=== PATIENT | female | born 1960 | race Caucasian/White ===

== ENCOUNTER 2018-02-01 13:58 | Observation (INO) ==
[2018-02-01] MEDS ORDERED: ONDANSETRON 4 MG/2 ML VIAL IV ONE (14:18)
--- NOTE | 2018-02-01 14:26 | Emergency Department Note ---
Abdominal Pain HPI - General Chief Complaint: Constipation Stated Complaint: constipation, n/v Time Seen by Provider: 02/01/18 14:05 Source: patient Mode of arrival: ambulatory Limitations: no limitations - History of Present Illness HPI Narrative: 58-year-old female presents with constipation 5 days. She also complains of significant lower abdominal cramping and vomiting that started today. She started having the cramping last night and it comes in waves. She states she has vomited once today. She is in significant pain. She states her only pain medication that she takes his hydrocodone in the last hydrocodone she took was 2 evenings ago. She has not taken anything to help with her bowels. She has not had any issues with obstruction in the past but has had constipation issues. She also had a kidney transplant in 2004. She denies any other surgeries. She also has multiple stents in her heart and takes Plavix. She denies any chest pain or shortness of breath. She denies any urinary symptoms or vaginal discharge. She states most of her pain is lower abdomen. This comes in waves. She is writhing in the bed. She is type I diabetic. She also does peritoneal dialysis each evening at home - Related Data Home Medications Medication Instructions Recorded Confirmed Aspirin [Adult Low Dose Aspirin EC] 81 mg PO DAILY 05/03/15 02/01/18 Clopidogrel [Plavix] 75 mg PO DAILY 05/03/15 02/01/18 Escitalopram [Lexapro] 20 mg PO DAILY 05/03/15 02/01/18 Nitroglycerin [Nitrostat] 0.4 mg SL Q5M PRN 05/03/15 02/01/18 Pravastatin [Pravachol] 40 mg PO HS 05/03/15 02/01/18 Alendronate Sodium [Fosamax] 70 mg PO WEEKLY 02/01/18 02/01/18 Calcitriol [Rocaltrol] 0.5 mcg PO DAILY 02/01/18 02/01/18 Cephalexin [Keflex] 250 mg PO DAILY 02/01/18 02/01/18 Felodipine [Felodipine ER] 5 mg PO DAILY 02/01/18 02/01/18 Folic Acid/Vit Bcomp,C [Dialyvite 1 each PO DAILY 02/01/18 02/01/18 Tablet] Furosemide [Lasix] 80 mg PO BID 02/01/18 02/01/18 Insulin Aspart [Novolog] 0 unit SQ DAILY 02/01/18 02/01/18 Iron Ps Cmplx/Vit B12/FA 1 each PO DAILY 02/01/18 02/01/18 [Poly-Iron 150 Forte Capsule] Losartan Potassium [Cozaar] 100 mg PO DAILY 02/01/18 02/01/18 Magnesium Oxide/Mag Aa Chelate 400 mg PO DAILY 02/01/18 02/01/18 [Magnesium 300 mg Capsule] traZODone HCL [Trazodone HCl] 100 mg PO DAILY 02/01/18 02/01/18 Previous Rx's Medication Instructions Recorded HYDROmorphone [Dilaudid] 4 mg PO Q4-6HP PRN #20 tablet 04/20/16 Allergies Allergy/AdvReac Type Severity Reaction Status Date / Time droperidol Allergy Severe ANAPHYLAXIS, Verified 05/03/15 10:58 DYSPNEA Sulfa (Sulfonamide Allergy Intermediate RASH Verified 05/03/15 10:58 Antibiotics) adhesive tape Allergy Verified 09/21/15 14:47 BAND AIDS AdvReac Intermediate REMOVES Uncoded 01/04/15 03:39 SKIN Review of Systems All systems ED: reviewed and negative except as stated. 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 Absent: conjunctival injection Neck: Present: normal inspection, full ROM Chest: Present: normal inspection, symmetric chest wall rise Respiratory: Present: normal lung sounds bilaterally Cardiovascular: Present: regular rate, normal heart sounds Abdominal: Present: soft, tenderness, guarding, diminished bowel sounds. Absent : distention, rebound, rigidity, psoas sign, obturator sign, heel tap sign Abdominal tenderness: Present: RUQ, RLQ, LUQ, LLQ, epigastrium, suprapubic ( severe) Rectal: Present: heme (-) stool, black stool (takes iron). Absent: bloody stool , fecal impaction, hemorrhoids Extremities: Present: normal inspection, full ROM Neurological: Present: alert, oriented X3 Psychiatric: Present: anxious Skin: Present: warm, dry, intact Course Course Narrative: Patient given a fleets and a soapsuds enema without any relief. I discussed this with Dr. Mcmahon and he would like to treat her with Relistor and fluids. I also talked with Dr. Reid and he wants peritoneal fluid taken and if she needs any antibiotics he can order it peritoneal through her dialysis catheter. Patient has been comfortable throughout her stay. Vital Signs Temperature 98.3 F 02/01/18 13:59 Pulse Rate 78 02/01/18 13:59 Respiratory Rate 20 02/01/18 13:59 Blood Pressure 159/59 02/01/18 13:59 Pulse Oximetry (%) 100 02/01/18 13:59 Temperature 98.3 F 02/01/18 13:59 Pulse Rate 71 02/01/18 18:45 Respiratory Rate 16 02/01/18 18:45 Blood Pressure 140/77 02/01/18 18:45 Pulse Oximetry (%) 98 02/01/18 18:45 Abdominal Pain - Lab Data Lab results reviewed: Yes I reviewed the patient's lab results. Result diagrams: 02/01/18 14:37 02/01/18 14:36 Lab Results 02/01/18 02/01/18 02/01/18 Range/Units 14:36 14:36 14:37 WBC 15.0 H (4.5-11.0) K/mcL RBC 3.47 L (4.00-5.20) M/mcL Hgb 11.4 L (12.0-15.0) g/dL Hct 33.4 L (36.0-48.0) % POC Hct 33.0 L (36.0-48.0) % MCV 96.4 (80.0-100.0) fL MCH 33.0 (26.0-34.0) pg MCHC 34.2 (31.0-36.0) g/dL RDW 12.3 (11.5-14.5) % Plt Count 291 (140-440) K/mcL MPV 8.3 (7.4-10.4) fL Gran % 79.9 H (38.0-78.0) % Lymph % (Auto) 12.4 L (15.5-49.0) % [place] % (Auto) 6.8 (1.0-12.0) % Eos % (Auto) 0.6 (0.0-7.0) % Baso % (Auto) 0.3 (0.0-2.0) % Gran # 12.0 H (1.8-8.0) K/mcL Lymph # (Auto) 1.9 (1.5-4.8) K/mcL [place] # (Auto) 1.0 H (0.1-0.9) K/mcL Eos # (Auto) 0.1 (0.0-0.7) K/mcL Baso # (Auto) 0 (0.0-0.3) K/mcL VBG Lactic Acid (0.5-2.2) mmol/L POC Sodium 132 L (133-145) mmol/L Sodium 132 L (133-145) mmol/L POC Potassium 4.2 (3.3-5.1) mmol/L Potassium 4.2 (3.3-5.1) mmol/L POC Chloride 96 (96-108) mmol/L Chloride 93 L (96-108) mmol/L Carbon Dioxide 23 (22-30) mmol/L POC Total CO2 23 (22-30) mmol/L Anion Gap 16.0 (8-16) POC BUN 46 H (6-20) mg/dl BUN 56 H (6-20) mg/dl Creatinine 3.3 H (0.6-1.1) mg/dl POC Creatinine 3.8 H (0.6-1.1) mg/dl GFR Calculation 15 Glucose 184 H (70-105) mg/dL POC Glucose 184 H (70-105) mg/dL Calcium 10.0 (8.6-10.4) mg/dl POC WB Ioniz Calcium 1.09 L (1.16-1.32) mmol/L Total Bilirubin 0.5 (0.0-1.0) mg/dL AST 35 (0-37) U/l ALT 18 (0-40) U/l Alkaline Phosphatase 106 (39-117) U/L Total Protein 7.2 (5.9-8.4) gm/dL Albumin 3.8 (3.2-5.2) gm/dL Globulin 3.4 (2.2-3.7) gm/dL Albumin/Globulin Ratio 1.1 (1.0-2.3) Beta-Hydroxybutyrate 0.78 H (< 0.27) mmol/L Periton Neutrophils Periton Lymphocytes Peritoneal Monocytes Peritoneal Eosinophils Peritoneal Basophils Periton Mesothelial Periton Macrophages Peritoneal Plasma Cell Peritoneal Other Cells Peritoneal Diff Commnt 02/01/18 02/01/18 Range/Units 16:08 18:21 WBC (4.5-11.0) K/mcL RBC (4.00-5.20) M/mcL Hgb (12.0-15.0) g/dL Hct (36.0-48.0) % POC Hct (36.0-48.0) % MCV (80.0-100.0) fL MCH (26.0-34.0) pg MCHC (31.0-36.0) g/dL RDW (11.5-14.5) % Plt Count (140-440) K/mcL MPV (7.4-10.4) fL Gran % (38.0-78.0) % Lymph % (Auto) (15.5-49.0) % [place] % (Auto) (1.0-12.0) % Eos % (Auto) (0.0-7.0) % Baso % (Auto) (0.0-2.0) % Gran # (1.8-8.0) K/mcL Lymph # (Auto) (1.5-4.8) K/mcL [place] # (Auto) (0.1-0.9) K/mcL Eos # (Auto) (0.0-0.7) K/mcL Baso # (Auto) (0.0-0.3) K/mcL VBG Lactic Acid 1.4 (0.5-2.2) mmol/L POC Sodium (133-145) mmol/L Sodium (133-145) mmol/L POC Potassium (3.3-5.1) mmol/L Potassium (3.3-5.1) mmol/L POC Chloride (96-108) mmol/L Chloride (96-108) mmol/L Carbon Dioxide (22-30) mmol/L POC Total CO2 (22-30) mmol/L Anion Gap (8-16) POC BUN (6-20) mg/dl BUN (6-20) mg/dl Creatinine (0.6-1.1) mg/dl POC Creatinine (0.6-1.1) mg/dl GFR Calculation Glucose (70-105) mg/dL POC Glucose (70-105) mg/dL Calcium (8.6-10.4) mg/dl POC WB Ioniz Calcium (1.16-1.32) mmol/L Total Bilirubin (0.0-1.0) mg/dL AST (0-37) U/l ALT (0-40) U/l Alkaline Phosphatase (39-117) U/L Total Protein (5.9-8.4) gm/dL Albumin (3.2-5.2) gm/dL Globulin (2.2-3.7) gm/dL Albumin/Globulin Ratio (1.0-2.3) Beta-Hydroxybutyrate (< 0.27) mmol/L Periton Neutrophils Not Reportable Periton Lymphocytes Not Reportable Peritoneal Monocytes Not Reportable Peritoneal Eosinophils Not Reportable Peritoneal Basophils Not Reportable Periton Mesothelial Not Reportable Periton Macrophages Not Reportable Peritoneal Plasma Cell Not Reportable Peritoneal Other Cells Not Reportable Peritoneal Diff Commnt Not Reportable - Radiology Data Radiology results reviewed: Yes I reviewed the patient's radiology results. Severe fecal impaction Disposition Pt seen by DRAWING TENDER/PA only: Yes Clinical Impression: Constipation Disposition: Xfer As Inpt ([facility]) Condition: Fair
[2018-02-01 15:14] LABS: Basophils # (Auto) 0 K/mcL (0.0-0.3); Basophils % (Auto) 0.3 % (0.0-2.0); Eosinophils # (Auto) 0.1 K/mcL (0.0-0.7); Eosinophils % (Auto) 0.6 % (0.0-7.0); Granulocytes % (Auto) 79.9 % (38.0-78.0); Lymphocytes # (Auto) 1.9 K/mcL (1.5-4.8); Lymphocytes % (Auto) 12.4 % (15.5-49.0); Mean Cell Volume 96.4 fL (80.0-100.0); Mean Corpuscular HGB Conc 34.2 g/dL (31.0-36.0); Monocytes % (Auto) 6.8 % (1.0-12.0); Platelet Count 291 K/mcL (140-440); RBC 3.47 M/mcL (4.00-5.20); Red Cell Distribution Width 12.3 % (11.5-14.5)
[2018-02-01 15:30] LABS: ALT/SGPT 18 U/l (0-40); Albumin 3.8 gm/dL (3.2-5.2); Albumin/Globulin Ratio 1.1 (1.0-2.3); Alkaline Phosphatase 106 U/L (39-117); Blood Urea Nitrogen 56 mg/dl (6-20)
--- NOTE | 2018-02-01 15:42 | XRay Report ---
CLINICAL INFORMATION: Constipation. Nausea and vomiting. TECHNIQUE: Supine and upright AP abdomen COMPARISON: CT scan dated 11/03/2016 FINDINGS: Previous lumbar fusion from L4 through S1. There are multiple surgical clips in the pelvis. There is a peritoneal dialysis catheter in place. Large amount of fecal material consistent with severe constipation or impaction. No dilated gas-filled small bowel. No evidence for mechanical small bowel obstruction. No pneumoperitoneum. No pneumatosis. No biliary or portal venous gas. IMPRESSION: 1. Severe constipation or impaction. 2. No mechanical small bowel obstruction. No focal abnormality. Interpreted and Authenticated by: Lionel Ennis 02/01/18
[2018-02-01] MEDS ORDERED: MINERAL OIL 1 DOSE ENEMA PR ONE (15:57)
[2018-02-01] MEDS ORDERED: FLEETS ADULT ENEMA PR ONE (16:10)
[2018-02-01] MEDS ORDERED: LACTULOSE 20 GM/30 ML ORAL.SOL PO ONE ×2 (17:21→17:22)
[2018-02-01] MEDS ORDERED: METHYLNALTREXONE BROMIDE 12 MG/0.6 ML SYRINGE SC ONE (17:38)
[2018-02-01] MEDS ORDERED: 0.9 % SODIUM CHLORIDE 1,000 ML IV SCH (18:15)
[2018-02-01] MEDS ORDERED: ONDANSETRON 4 MG/2 ML VIAL IV PRN (18:17)
[2018-02-01] MEDS ORDERED: DEXTROSE 50% 50 ML VIAL IV PRN (18:24)
[2018-02-01 20:05] LABS: Appearance,Urine CLEAR; Bacteria,Urine 0 /hpf (0); Bilirubin,Urine NEG (NEG); Color,Urine STRAW; Glucose,Urine (UA) NEGATIVE (NEG); Leukocyte Esterase,Urine NEG /uL (NEG); Protein,Urine NEG (NEG); Specific Gravity,Urine 1.009 (1.000-1.035); Urine Blood NEG mg/dL (<0.03); Urine RBC 1 /hpf (0-1); Urine Squamous Epithelial Cell 0 /hpf (0-4); Urine WBC 1 /hpf (0-4); Urobilinogen,Urine NEG (NEG)
[2018-02-01] MEDS ORDERED: POLYETHYLENE GLYCOL 3350 17 GM PACKET PO ONE (20:37)
[2018-02-01 20:44] LABS: Nucleated Cel,Peritoneal Fluid 1 /cumm; RBC,Peritoneal Fluid < 50000 /cumm
--- NOTE | 2018-02-01 21:04 | General Surg History&Physical ---
History of Present Illness Patient information: Note initiated : 02/01/18 at 9:02 pm Service Date, if different from initiated Date: [] Patient: Brandy Mcmillan a 58 y/o F admitted on 02/01/18 for constipation, n/v. Chief Complaint: [] HPI: Ms. Mcmillan is a 58 year old F long-term history of constipation. She states that she usually has a bowel movement every 4 days but has been regular and has not had discomfort. Over the past 5 days she has had worsening pain and distention with nausea and vomiting. She presents to the emergency room with severe constipation involving her entire colon with a palpable hard fecal masses ; and mild leukocytosis. She is admitted for treatment to evacuate her colon. She did not respond to enemas in the emergency room. Review of Systems - Constitutional fatigue, headache(s), malaise, weakness - EENT Nose, mouth and throat: dizziness, headache(s), vertigo - Cardiovascular syncope (history of episodic syncope and near-syncope with no obvious source) - Respiratory no cough, no dyspnea on exertion, no wheezing, no pain on inspirtation - Gastrointestinal abdominal pain, bloating, constipation, cramping, nausea, vomiting - Musculoskeletal back pain, myalgias, stiffness - Integumentary no changing lesions, no new lesions, no non-healing lesions, no pruritus, no rash - Neurological dizziness, numbness, tremor(s), weakness - Psychiatric anxiety, depression - Endocrine fatigue - Hematologic/Lymphatic no easy bleeding, no easy bruising, no lymphadenopathy Past History Past medical history: Coronary artery disease status post stents 7 with last 2 stents placed 1 month ago Carotid artery stenosis,, bilateral; status post left carotid endarterectomy 2 months ago End-stage renal disease status post kidney transplant with rejection on peritoneal dialysis Diabetes mellitus insulin-dependent with insulin pump Anemia renal and chronic disease Hypertension Past surgical history: O TIF left ankle Kidney transplant Left carotid endarterectomy Lumbar back surgery 3 Past family history: Father age 87 due to complications of thyroid cancer Mother alive age 84 with coronary artery disease hypertension and peripheral vascular disease 2 older siblings in good health Past social history: Denies tobacco Denies alcohol use Denies drug use Medications and Allergies Home Medications Medication Instructions Recorded Confirmed Type Aspirin [Adult Low Dose Aspirin EC] 81 mg PO DAILY 05/03/15 02/01/18 History Clopidogrel [Plavix] 75 mg PO DAILY 05/03/15 02/01/18 History Escitalopram [Lexapro] 20 mg PO DAILY 05/03/15 02/01/18 History Nitroglycerin [Nitrostat] 0.4 mg SL Q5M PRN 05/03/15 02/01/18 History Pravastatin [Pravachol] 40 mg PO HS 05/03/15 02/01/18 History HYDROmorphone [Dilaudid] 4 mg PO Q4-6HP PRN #20 tablet 04/20/16 02/01/18 Rx Alendronate Sodium [Fosamax] 70 mg PO WEEKLY 02/01/18 02/01/18 History Calcitriol [Rocaltrol] 0.5 mcg PO DAILY 02/01/18 02/01/18 History Cephalexin [Keflex] 250 mg PO DAILY 02/01/18 02/01/18 History Felodipine [Felodipine ER] 5 mg PO DAILY 02/01/18 02/01/18 History Folic Acid/Vit Bcomp,C [Dialyvite 1 each PO DAILY 02/01/18 02/01/18 History Tablet] Furosemide [Lasix] 80 mg PO BID 02/01/18 02/01/18 History Insulin Aspart [Novolog] 0 unit SQ DAILY 02/01/18 02/01/18 History Iron Ps Cmplx/Vit B12/FA 1 each PO DAILY 02/01/18 02/01/18 History [Poly-Iron 150 Forte Capsule] Losartan Potassium [Cozaar] 100 mg PO DAILY 02/01/18 02/01/18 History Magnesium Oxide/Mag Aa Chelate 400 mg PO DAILY 02/01/18 02/01/18 History [Magnesium 300 mg Capsule] traZODone HCL [Trazodone HCl] 100 mg PO DAILY 02/01/18 02/01/18 History Oxymetazoline [Afrin] 2 spray INTRANASAL DAILY 02/02/18 02/02/18 History Allergies Allergy/AdvReac Type Severity Reaction Status Date / Time droperidol Allergy Severe ANAPHYLAXIS, Verified 05/03/15 10:58 DYSPNEA Sulfa (Sulfonamide Allergy Intermediate RASH Verified 05/03/15 10:58 Antibiotics) adhesive tape Allergy Verified 09/21/15 14:47 BAND AIDS AdvReac Intermediate REMOVES Uncoded 01/04/15 03:39 SKIN Exam Temp Pulse Resp BP Pulse Ox 99.3 F H 78 12 138/64 97 02/01/18 18:53 02/01/18 18:53 02/01/18 18:53 02/01/18 18:53 02/01/18 18:53 - General physical appearance well developed, well nourished, no distress, moderate distress, moderate pain - Eyes PERRL, normal ocular movement - ENT normal pinna, normal nares, normal mucosa, no hearing loss, no congestion - Head Head exam IM: Present: atraumatic, normal inspection, normocephalic - Neck no masses, trachea midline, no lymphadectomy, no venous distension, other ( bilateral soft carotid bruits; healing left carotid endarterectomy scar) - Cardiovascular Cardiovascular exam IM: Present: normal rate and rhythm, RRR, +S1, +S2. Absent : JVD, tachycardia Type of murmur IM: Present: systolic Intensity IM: 2/6 - Respiratory normal expansion, normal respiratory effort, clear to percussion, clear to auscultation - Abdomen Abdomen: Present: tender, bowel sounds, distended ( moderate distention with diffuse tenderness and palpable hard stool in colon; active bowel sounds) Hernia: Present: none - Genitourinary Present: normal external genitalia - Integumentary Present: no rash, no growths, no abnormal pigmentation - Neurologic Present: normal coordination, normal sensation - Musculoskeletal Present: normal gait, normal posture - Psychiatric Present: oriented to time, oriented to person, oriented to place, speech is normal, memory intact Assessment and Plan (1) Constipation due to opioid therapy Relistor 12 mg subcutaneous daily Reglan 10 mg IV every 6 hours MiraLAX 17 g in 8 ounces liquid 4 times daily Follow-up abdominal x-rays in 24 hours May need to use milk of molasses enemas to evacuate the rectum Status: Acute (2) Coronary artery disease Continue home medication Status: Acute Qualifiers: Coronary Disease-Associated Artery/Lesion type: [place] artery [place] vs. 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
[2018-02-01] MEDS: FUROSEMIDE 80 MG TABLET PO SCH (21:41)
[2018-02-01] MEDS: traZODone HCL 100 MG TABLET PO SCH (21:41)
[2018-02-01] MEDS: METOCLOPRAMIDE 10 MG/2 ML VIAL IV SCH (23:11)
[2018-02-02] MEDS: INSULIN LISPRO 1 UNIT/0.01 ML UNIT SQ SCH ×5 (00:19→23:57)
[2018-02-02] MEDS: METOCLOPRAMIDE 10 MG/2 ML VIAL IV SCH ×4 (05:27→23:52)
[2018-02-02] MEDS ORDERED: CLOPIDOGREL 75 MG TABLET PO SCH (09:00)
[2018-02-02] MEDS: LOSARTAN 50 MG TABLET PO SCH ×3 (11:12→21:29)
[2018-02-02] MEDS: FELODIPINE XR 5 MG TABLET PO SCH (11:14)
[2018-02-02] MEDS: ESCITALOPRAM 20 MG TABLET PO SCH (11:14)
[2018-02-02] MEDS: FUROSEMIDE 80 MG TABLET PO SCH ×2 (11:14→19:51)
[2018-02-02] MEDS: METHYLNALTREXONE BROMIDE 12 MG/0.6 ML SYRINGE SQ SCH (11:15)
--- NOTE | 2018-02-02 14:13 | General Surgery Progress Note ---
Subjective Patient reports: still having pain, tolerating liquids well, flatus, bowel movement, afebrile Narrative: Note initiated : 02/02/18 at 2:10 pm Service Date, if different from initiated Date: [] Patient: Brandy Mcmillan 58 y/o F admitted on 02/01/18 for constipation, n/v. Chief Complaint: [patient is still having crampy abdominal pain. She had a small bowel movement and passed a small amount of gas. She had nausea with the Relistor but did not have any vomiting. She still has significant abdominal distention.cultures on her peritoneal dialysis fluid have been negative.. She does not have any bacteria and very rare white blood cell on Gram stain.] Objective Temp Pulse Resp BP Pulse Ox 98.5 F 85 12 114/63 98 02/02/18 12:00 02/02/18 12:00 02/02/18 12:00 02/02/18 12:00 02/02/18 12:00 - Additional Data Intake & Output - Last 24 hours: Intake & Output 01/31/18 02/01/18 02/02/18 02/03/18 05:59 05:59 05:59 05:59 Intake Total 680 / 680 800 / 800 Output Total 900 / 900 1000 / 1000 Balance -220 / -220 -200 / -200 Weight 163 lb - General physical appearance well developed, well nourished, moderate distress, moderate pain - Eyes PERRL, normal ocular movement - ENT normal pinna, normal nares, normal mucosa, no hearing loss, no congestion - Neck no masses, no bruits, trachea midline, no lymphadectomy, no venous distension - Respiratory normal expansion, normal respiratory effort, clear to percussion, clear to auscultation - Cardiovascular Cardiovascular exam: Present: normal rate and rhythm, RRR, +S1, +S2. Absent: JVD, tachycardia - Abdomen tender (moderate diffuse tenderness with fullness over course of colon; active bowel sounds), bowel sounds (present), surgical scars (none), masses (none) - Integumentary no rash, no growths, no abnormal pigmentation - Neurologic normal coordination, normal sensation - Musculoskeletal normal gait, normal posture - Psychiatric oriented to time, oriented to person, oriented to place, speech is normal, memory intact - Labs 02/01/18 14:37 02/01/18 14:36 Diabetes panel 02/01/18 Range/Units 14:36 Sodium 132 L (133-145) mmol/L Potassium 4.2 (3.3-5.1) mmol/L Chloride 93 L (96-108) mmol/L Carbon Dioxide 23 (22-30) mmol/L BUN 56 H (6-20) mg/dl Creatinine 3.3 H (0.6-1.1) mg/dl Glucose 184 H (70-105) mg/dL Calcium 10.0 (8.6-10.4) mg/dl AST 35 (0-37) U/l ALT 18 (0-40) U/l Alkaline Phosphatase 106 (39-117) U/L Total Protein 7.2 (5.9-8.4) gm/dL Albumin 3.8 (3.2-5.2) gm/dL Calcium panel 02/01/18 Range/Units 14:36 Calcium 10.0 (8.6-10.4) mg/dl Albumin 3.8 (3.2-5.2) gm/dL Pituitary panel 02/01/18 Range/Units 14:36 Sodium 132 L (133-145) mmol/L Potassium 4.2 (3.3-5.1) mmol/L Chloride 93 L (96-108) mmol/L Carbon Dioxide 23 (22-30) mmol/L BUN 56 H (6-20) mg/dl Creatinine 3.3 H (0.6-1.1) mg/dl Glucose 184 H (70-105) mg/dL Calcium 10.0 (8.6-10.4) mg/dl Adrenal panel 02/01/18 Range/Units 14:36 Sodium 132 L (133-145) mmol/L Potassium 4.2 (3.3-5.1) mmol/L Chloride 93 L (96-108) mmol/L Carbon Dioxide 23 (22-30) mmol/L BUN 56 H (6-20) mg/dl Creatinine 3.3 H (0.6-1.1) mg/dl Glucose 184 H (70-105) mg/dL Calcium 10.0 (8.6-10.4) mg/dl Total Bilirubin 0.5 (0.0-1.0) mg/dL AST 35 (0-37) U/l ALT 18 (0-40) U/l Alkaline Phosphatase 106 (39-117) U/L Total Protein 7.2 (5.9-8.4) gm/dL Albumin 3.8 (3.2-5.2) gm/dL Assessment and Plan (1) Constipation due to opioid therapy Status: Acute Assessment and plan: Scheduled milk and molasses enema today and tomorrow Recheck abdominal x-rays in the morning Continue Reglan and Relistor Current Visit: Yes (2) Coronary artery disease Status: Acute Current Visit: Yes (3) Hypertension Status: Acute Current Visit: No (4) Chronic renal failure Status: Acute Current Visit: No (5) Diabetes mellitus Status: Acute Current Visit: Yes - Time Spent With Patient Total time spent is greater than 50% in coordination of care (as documented) at patient's floor/unit and/or counseling patient:
[2018-02-02 15:03] LABS: Neutrophils,Peritoneal Fluid 30 %; Nucleated Cel,Peritoneal Fluid 115 /cumm; RBC,Peritoneal Fluid < 50000 /cumm
[2018-02-02] MEDS ORDERED: METHYLNALTREXONE BROMIDE 12 MG/0.6 ML SYRINGE SC SCH (18:00)
[2018-02-02] MEDS: CLOPIDOGREL 75 MG TABLET PO SCH (21:29)
[2018-02-02] MEDS: traZODone HCL 100 MG TABLET PO SCH (21:29)
[2018-02-03 05:35] LABS: Basophils # (Auto) 0 K/mcL (0.0-0.3); Basophils % (Auto) 0.2 % (0.0-2.0); Eosinophils # (Auto) 0.4 K/mcL (0.0-0.7); Eosinophils % (Auto) 4.1 % (0.0-7.0); Granulocytes % (Auto) 71.6 % (38.0-78.0); Lymphocytes # (Auto) 1.2 K/mcL (1.5-4.8); Lymphocytes % (Auto) 12.8 % (15.5-49.0); Mean Cell Volume 97.4 fL (80.0-100.0); Mean Corpuscular HGB Conc 33.8 g/dL (31.0-36.0); Mean Corpuscular Hemoglobin 32.9 pg (26.0-34.0); Monocytes % (Auto) 11.3 % (1.0-12.0); Platelet Count 214 K/mcL (140-440); RBC 2.73 M/mcL (4.00-5.20); Red Cell Distribution Width 12.6 % (11.5-14.5)
[2018-02-03] MEDS: METOCLOPRAMIDE 10 MG/2 ML VIAL IV SCH ×4 (05:57→17:41)
[2018-02-03] MEDS: INSULIN LISPRO 1 UNIT/0.01 ML UNIT SQ SCH ×3 (06:08→17:55)
[2018-02-03 06:43] LABS: ALT/SGPT 12 U/l (0-40); Albumin 2.9 gm/dL (3.2-5.2); Alkaline Phosphatase 76 U/L (39-117); Bilirubin,Direct < 0.2 mg/dL (0.0-0.3); Blood Urea Nitrogen 36 mg/dl (6-20); Gamma Glutamyl Transpeptidase 9 U/L (5-36); Uric Acid 4.9 mg/dL (2.5-8.0)
--- NOTE | 2018-02-03 08:30 | XRay Report ---
CLINICAL INFORMATION: Constipation. Follow-up. TECHNIQUE: AP supine and upright abdomen COMPARISON: 02/01/2018 FINDINGS: Large amount of fecal material within the colon consistent with constipation. Fecal material is decreased since prior examination. No small bowel dilatation. No air-fluid levels. All gas pattern is nonobstructive. No pneumoperitoneum. No biliary or portal venous gas. No pneumatosis. As described previously there is a peritoneal dialysis catheter, unchanged. There are multiple surgical clips. Patient has undergone previous lower lumbar spinal fusion IMPRESSION: 1. Improved bowel gas pattern with decreased fecal material since 02/01/2018 2. Appearance remains consistent with constipation. Interpreted and Authenticated by: Lionel Ennis 02/03/18
[2018-02-03] MEDS: ESCITALOPRAM 20 MG TABLET PO SCH (08:42)
[2018-02-03] MEDS: FUROSEMIDE 80 MG TABLET PO SCH ×2 (08:42→15:53)
[2018-02-03] MEDS: FELODIPINE XR 5 MG TABLET PO SCH (08:42)
[2018-02-03] MEDS: MAGNESIUM HYDROXIDE 30 ML ORAL.SUSP PO SCH ×6 (09:13→19:28)
[2018-02-03] MEDS: METHYLNALTREXONE BROMIDE 12 MG/0.6 ML SYRINGE SQ SCH (10:51)
[2018-02-03 15:31] LABS: Nucleated Cel,Peritoneal Fluid 288 /cumm; RBC,Peritoneal Fluid < 50000 /cumm
[2018-02-03 16:29] LABS: Neutrophils,Peritoneal Fluid 14 %
--- NOTE | 2018-02-03 16:48 | General Surgery Progress Note ---
Subjective Patient reports: still having pain, tolerating liquids well, flatus, bowel movement, nausea, afebrile Narrative: Note initiated : 02/03/18 at 4:46 pm Service Date, if different from initiated Date: [] Patient: Brandy Mcmillan 58 y/o F admitted on 02/01/18 for Constipation, N/V. Chief Complaint: [the patient has only had small bowel movements. She was having more flatus this morning but this is decreased. She has received 4 doses of milk of magnesia today without improvement. She continues to have crampy abdominal pain. Her abdomen remains distended but it is less tender than earlier today.. X-ray shows decrease in fecal volume but still persistent large fecal burden and entire colon. She does not have significant small bowel distention..] Objective Temp Pulse Resp BP Pulse Ox 97.8 F 76 12 142/63 95 02/03/18 15:54 02/03/18 15:54 02/03/18 15:54 02/03/18 15:54 02/03/18 15:54 - Additional Data Intake & Output - Last 24 hours: Intake & Output 02/01/18 02/02/18 02/03/18 02/04/18 05:59 05:59 05:59 05:59 Intake Total 680 / 680 2460 / 2460 650 / 650 Output Total 900 / 900 2250 / 2250 850 / 850 Balance -220 / -220 210 / 210 -200 / -200 Weight 163 lb 166 lb 163 lb - General physical appearance moderate distress, moderate pain - Eyes PERRL, normal ocular movement - ENT normal pinna, normal nares, normal mucosa, no hearing loss, no congestion - Neck no masses, no bruits, trachea midline, no lymphadectomy, no venous distension - Respiratory normal expansion, normal respiratory effort, clear to percussion, clear to auscultation - Cardiovascular Cardiovascular exam: Present: normal rate and rhythm, RRR, +S1, +S2. Absent: JVD, tachycardia - Abdomen tender (tender abdomen with less prominent masses noted; bowel sounds are normoactive), bowel sounds (present), surgical scars (none), masses (none) - Integumentary no rash, no growths, no abnormal pigmentation - Neurologic normal coordination ( thank you), normal sensation - Musculoskeletal normal gait, normal posture - Psychiatric oriented to time ( that), oriented to person, oriented to place, speech is normal, memory intact - Labs 02/03/18 03:52 02/03/18 03:52 Diabetes panel 02/03/18 Range/Units 03:52 Sodium 133 (133-145) mmol/L Potassium 3.5 (3.3-5.1) mmol/L Chloride 93 L (96-108) mmol/L Carbon Dioxide 29 (22-30) mmol/L BUN 36 H (6-20) mg/dl Creatinine 3.2 H (0.6-1.1) mg/dl Glucose 171 H (70-105) mg/dL Calcium 9.0 (8.6-10.4) mg/dl AST 27 (0-37) U/l ALT 12 (0-40) U/l Alkaline Phosphatase 76 (39-117) U/L Total Protein 5.9 (5.9-8.4) gm/dL Albumin 2.9 L (3.2-5.2) gm/dL Triglycerides 110 (<150) mg/dl Calcium panel 02/03/18 Range/Units 03:52 Calcium 9.0 (8.6-10.4) mg/dl Phosphorus 3.5 (2.7-4.5) mg/dL Albumin 2.9 L (3.2-5.2) gm/dL Pituitary panel 02/03/18 Range/Units 03:52 Sodium 133 (133-145) mmol/L Potassium 3.5 (3.3-5.1) mmol/L Chloride 93 L (96-108) mmol/L Carbon Dioxide 29 (22-30) mmol/L BUN 36 H (6-20) mg/dl Creatinine 3.2 H (0.6-1.1) mg/dl Glucose 171 H (70-105) mg/dL Calcium 9.0 (8.6-10.4) mg/dl Adrenal panel 02/03/18 Range/Units 03:52 Sodium 133 (133-145) mmol/L Potassium 3.5 (3.3-5.1) mmol/L Chloride 93 L (96-108) mmol/L Carbon Dioxide 29 (22-30) mmol/L BUN 36 H (6-20) mg/dl Creatinine 3.2 H (0.6-1.1) mg/dl Glucose 171 H (70-105) mg/dL Calcium 9.0 (8.6-10.4) mg/dl Total Bilirubin 0.4 (0.0-1.0) mg/dL AST 27 (0-37) U/l ALT 12 (0-40) U/l Alkaline Phosphatase 76 (39-117) U/L Total Protein 5.9 (5.9-8.4) gm/dL Albumin 2.9 L (3.2-5.2) gm/dL Assessment and Plan (1) Constipation due to opioid therapy Status: Acute Assessment and plan: Recheck abdominal x-rays in the morning Continue Reglan and Relistor Current Visit: Yes (2) Coronary artery disease Status: Acute Current Visit: Yes (3) Hypertension Status: Acute Current Visit: No (4) Chronic renal failure Status: Acute Assessment and plan: Continue peritoneal dialysis Recheck electrolytes in the morning Current Visit: No (5) Diabetes mellitus Status: Acute Assessment and plan: Continue sliding-scale coverage until patient can take by mouth Current Visit: Yes - Time Spent With Patient Total time spent is greater than 50% in coordination of care (as documented) at patient's floor/unit and/or counseling patient:
[2018-02-03] MEDS ORDERED: CEFEPIME 2 GM VIAL IV ONE ×2 (17:46→21:04)
[2018-02-03] MEDS ORDERED: VANCOMYCIN 1 GM VIAL IV ONE (18:00)
[2018-02-03] MEDS: LOSARTAN 50 MG TABLET PO SCH (20:58)
[2018-02-03] MEDS: traZODone HCL 100 MG TABLET PO SCH (20:58)
[2018-02-03] MEDS: CLOPIDOGREL 75 MG TABLET PO SCH (20:58)
--- NOTE | 2018-02-03 22:10 | Nephrology Progress Note ---
Subjective Patient information: Note initiated : 02/03/18 at 10:03 pm Service Date, if different from initiated Date: [] Patient: Brandy Mcmillan 58 y/o F admitted on 02/01/18 for Constipation, N/V. Chief Complaint: Still continue to have abdominal discomfort and constipation. Objective - Vital Signs Vital signs: Vital Signs Temp Pulse Pulse Resp BP BP Pulse Ox 02/03/18 19:21 98.3 F 75 14 138/64 95 02/03/18 15:54 97.8 F 76 12 142/63 95 02/03/18 12:00 98.5 F 73 106/48 93 02/03/18 07:09 98.8 F 68 12 132/68 96 02/03/18 03:54 99.5 F H 76 16 146/71 02/02/18 23:48 98.5 F 71 16 134/67 Intake and Output 02/03/18 02/03/18 02/04/18 13:59 21:59 05:59 Intake Total 350 / 350 1220 / 1220 Output Total 450 / 450 401 / 401 Balance -100 / -100 819 / 819 Intake: Oral 350 / 350 1220 / 1220 Output: Void Amount 450 / 450 401 / 401 Other: Meal Dinner Percent of Meal Consumed 100% Feeding Ability Independent Stool Size Small Stool Color Brown Black Stool Consistency Araceli # Bowel Movements 1 1 Weight 163 lb 163 lb 8 oz Patient Weight 02/04/18 05:59 Weight 163 lb 8 oz Intake & Output: Intake & Output 02/03/18 02/03/18 02/04/18 13:59 21:59 05:59 Intake Total 350 / 350 1220 / 1220 Output Total 450 / 450 401 / 401 Balance -100 / -100 819 / 819 Weight 163 lb 163 lb 8 oz Intake: Oral 350 / 350 1220 / 1220 Output: Void Amount 450 / 450 401 / 401 Other: Meal Dinner Percent of Meal Consumed 100% Feeding Ability Independent Stool Size Small Stool Color Brown Black Stool Consistency Araceli # Bowel Movements 1 1 - General Appearance General appearance: well-developed, well-nourished EENT: ATNC, PERRL Neck: no JVD Respiratory: no kyphosis Cardiology: no murmurs Gastrointestinal: hypoactive bowel sounds Integumentary: no rash Musculoskeletal: no deformities - Lab 02/03/18 03:52 07/05/18 03:52 Most recent lab results Calcium 9.0 mg/dl (8.6-10.4) 02/03/18 03:52 Phosphorus 3.5 mg/dL (2.7-4.5) 02/03/18 03:52 Magnesium 1.7 mg/dL (1.6-2.5) 02/03/18 03:52 Assessment and Plan (1) End-stage renal disease (ESRD) Status: Acute Comment: ESRD needing peritoneal dialysis. She has abdominal pain and had initial cell count of 1 and then 115 and now 288. I do not think this is infection. It might be related to inflammatory process. Howerver, I will emperically treat her with vancomycin and cefepime. Her WBC count was initially elevated and now normalized. Will hold off on the cycler tonight and will go back tomorrow night on the cycler. She will get one bag of 2.5% dextrose as extraneal is not avaialable.
[2018-02-04] MEDS: METOCLOPRAMIDE 10 MG/2 ML VIAL IV SCH ×3 (00:15→11:09)
[2018-02-04] MEDS: INSULIN LISPRO 1 UNIT/0.01 ML UNIT SQ SCH ×3 (00:16→13:15)
[2018-02-04] MEDS: ACETAMINOPHEN 1,000 MG/100 ML BOTTLE IV PRN ×2 (00:20→06:02)
[2018-02-04 05:33] LABS: Basophils # (Auto) 0 K/mcL (0.0-0.3); Basophils % (Auto) 0.3 % (0.0-2.0); Eosinophils # (Auto) 0.1 K/mcL (0.0-0.7); Eosinophils % (Auto) 1.1 % (0.0-7.0); Lymphocytes # (Auto) 0.9 K/mcL (1.5-4.8); Lymphocytes % (Auto) 9.5 % (15.5-49.0); Mean Cell Volume 97.6 fL (80.0-100.0); Mean Corpuscular HGB Conc 34.6 g/dL (31.0-36.0); Mean Corpuscular Hemoglobin 33.8 pg (26.0-34.0); Monocytes # (Auto) 1.2 K/mcL (0.1-0.9); Monocytes % (Auto) 12.1 % (1.0-12.0); Platelet Count 214 K/mcL (140-440); RBC 2.61 M/mcL (4.00-5.20); Red Cell Distribution Width 12.5 % (11.5-14.5)
[2018-02-04 06:05] LABS: ALT/SGPT 11 U/l (0-40); Albumin 2.8 gm/dL (3.2-5.2); Alkaline Phosphatase 69 U/L (39-117); Bilirubin,Direct < 0.2 mg/dL (0.0-0.3); Blood Urea Nitrogen 39 mg/dl (6-20); Gamma Glutamyl Transpeptidase 10 U/L (5-36); Uric Acid 5.6 mg/dL (2.5-8.0)
[2018-02-04] MEDS: METHYLNALTREXONE BROMIDE 12 MG/0.6 ML SYRINGE SQ SCH (08:20)
[2018-02-04] MEDS: FUROSEMIDE 80 MG TABLET PO SCH (08:21)
[2018-02-04] MEDS: ESCITALOPRAM 20 MG TABLET PO SCH (08:21)
--- NOTE | 2018-02-04 09:37 | XRay Report ---
CLINICAL INFORMATION: Severe constipation. Follow-up. TECHNIQUE: Supine and upright abdomen COMPARISON: Most recent previous examinations dated 02/03/2018 at 02/01/2018 FINDINGS: Bowel gas pattern is improved. There is decreased fecal material since previous examinations. Present appearance considered to be within normal limits. No dilated gas-filled small bowel. No mechanical small bowel obstruction. No low peritoneum. No biliary or portal venous gas. No pneumatosis. IMPRESSION: Markedly improved abdomen consistent with resolution of severe constipation Interpreted and Authenticated by: Lionel Ennis 02/04/18
[2018-02-04] MEDS: FELODIPINE XR 5 MG TABLET PO SCH (13:14)
--- NOTE | 2018-02-04 13:28 | Discharge Summary ---
Providers - Providers Patient information: Note initiated : 02/04/18 at 1:27 pm Service Date, if different from initiated Date: [] Patient: Brandy Mcmillan 58 y/o F admitted on 02/01/18 for Constipation, N/V. Chief Complaint: [] Date of admission: 02/01/18 Discharge date: 02/04/18 Attending physician: Allan Mcmahon nephrology---DR. REID Hospitalization Hospital course: 58-year-old female admitted with severe constipation with fecal impaction. The patient has a long history of chronic primary constipation. She normally has bowel movements about every 4 days. She presents with a six-day history of no bowel movement with increasing abdominal pain nausea and vomiting. She had vomiting with intake of any thing by mouth. She was seen in the emergency room where primary x-rays reveal major fecal impaction from anus to cecum with mild dilation of small bowel. She was given enemas in the emergency room without improvement. She has a history of use of HYDROCODONE ON A DAILY BASIS. She was admitted started on IV fluids and her nausea and vomiting was treated symptomatically. She was given Relistor to block the peripheral effect of the narcotics on the bowel. She was also started on MiraLAX which was not effective. She was given milk molasses enemas without results.. She was then given milk of magnesia 6 which has finally become Effective. She had bowel movements most of last evening and last night. Follow-up abdominal x- rays today shows significant clearing of the constipation. She is stable and is discharged home with plans to keep her on MiraLAX on a daily basis. The patient has renal failure and is on home peritoneal dialysis. She was seen by Dr. Reid who coordinated her dialysis care. She did not have any difficulties relative to this. Her electrolytes are good. Patient is stable for discharge in satisfactory condition. 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 Discharge diagnosis: severe constipation Secondary discharge diagnosis: Fecal impaction Chronic renal failure Hypertension Coronary artery disease Diabetes mellitus Reason for admission: fecal impaction with recurrent nausea and vomiting Procedures: None Complications: None Exam Temp Pulse Resp BP Pulse Ox 97.7 F 63 10 L 112/61 97 02/04/18 11:47 02/04/18 11:47 02/04/18 11:47 02/04/18 11:47 02/04/18 08:00 - General physical appearance well developed, well nourished, no distress - Eyes PERRL, normal ocular movement - ENT normal pinna, normal nares, normal mucosa, no hearing loss, no congestion - Head Head exam IM: Present: atraumatic, normal inspection, normocephalic - Neck no masses, no bruits, trachea midline, no lymphadectomy, no venous distension - Cardiovascular Cardiovascular exam IM: Present: normal rate and rhythm, RRR, +S1, +S2. Absent : irregular rhythm, JVD, tachycardia - Respiratory normal expansion, normal respiratory effort, clear to percussion, clear to auscultation - Abdomen Abdomen: Present: soft (abdominal exam is benign soft and nontender; she has good active bowel sounds), non tender, bowel sounds Hernia: Present: none - Genitourinary Present: normal external genitalia - Integumentary Present: no rash, no growths, no abnormal pigmentation - Neurologic Present: normal coordination, normal sensation - Musculoskeletal Present: normal gait, normal posture - Psychiatric Present: oriented to time, oriented to person, oriented to place, speech is normal, memory intact Discharge Plan - Patient/Caregiver Discharge Instructions Activity: increase activity as tolerated Diet: Regular Diet Additional Instructions: +MiraLAX 17 g in 8 ounces of liquid 2-3 times daily as needed Increase activity as tolerated. Resume home diet as tolerated. - Follow up Plan Follow up with: Alida Silva MD [Primary Care Provider] - Allan Mcmahon MD [Physician] - (Please call Wednesday and schedule a hospital follow up to be seen in two weeks.) Disposition: Home, Self-Care Prognosis: Good Rehab Potential: Good I certify that the patient requires SNF services.: No Overall status at discharge: patient is not back to baseline Pending Studies Resuscitation Status Full Code Diet Clear Liquid Diet Start WedFeb 02 1812 Clopidogrel Bisulfate (Plavix) 75 mg PO HS [facility] Last Admin: 02/03/18 20:58 Dose: 75 mg Admin: 02/02/18 21:29 Dose: 75 mg Diagnostic Test (Pha) (Accu-Chek) 1 each FS Q6 BRANDI Last Admin: 02/04/18 05:47 Dose: 1 each Admin: 02/03/18 23:54 Dose: 1 each Admin: 02/03/18 17:43 Dose: 1 each Admin: 02/03/18 12:11 Dose: 1 each Admin: 02/03/18 05:57 Dose: 1 each Admin: 02/02/18 23:57 Dose: 1 each Admin: 02/02/18 18:41 Dose: 1 each Admin: 02/02/18 17:46 Dose: 1 each Admin: 02/02/18 17:31 Dose: 1 each Admin: 02/02/18 12:05 Dose: 1 each Admin: 02/02/18 05:27 Dose: 1 each Admin: 02/01/18 23:16 Dose: 1 each Escitalopram Oxalate (Lexapro) 20 mg PO DAILY [facility] Last Admin: 02/04/18 08:21 Dose: 20 mg Admin: 02/03/18 08:42 Dose: 20 mg Admin: 02/02/18 11:14 Dose: 20 mg Felodipine (Plendil Xr) 5 mg PO DAILY [facility] Last Admin: 02/04/18 13:14 Dose: Admin: 02/03/18 08:42 Dose: 5 mg Admin: 02/02/18 11:14 Dose: 5 mg Furosemide (Lasix) 80 mg PO BIDD [facility] Last Admin: 02/04/18 08:21 Dose: 80 mg Admin: 02/03/18 15:53 Dose: 80 mg Admin: 02/03/18 08:42 Dose: 80 mg Admin: 02/02/18 19:51 Dose: 80 mg Admin: 02/02/18 11:14 Dose: 80 mg Admin: 02/01/18 21:41 Dose: 80 mg Acetaminophen (Ofirmev) 1,000 mg in 100 mls @ 200 mls/hr IV Q6HP PRN PRN Reason: PAIN/FEVER > 101 Last Infusion: 02/04/18 06:32 Dose: 0 mls/hr Admin: 02/04/18 06:02 Dose: 200 mls/hr Infusion: 02/04/18 00:50 Dose: 200 mls/hr Admin: 02/04/18 00:20 Dose: 200 mls/hr Insulin Human Lispro (Humalog) 0 unit SQ Q6 BRANDI PRN Reason: Protocol Last Admin: 02/04/18 13:15 Dose: Not Given Admin: 02/04/18 05:49 Dose: Not Given Admin: 02/04/18 00:16 Dose: 3 unit Admin: 02/03/18 17:55 Dose: 1 unit Admin: 02/03/18 12:12 Dose: Not Given Admin: 02/03/18 06:08 Dose: 2 unit Admin: 02/02/18 23:57 Dose: Not Given Admin: 02/02/18 17:31 Dose: Not Given Admin: 02/02/18 12:36 Dose: 3 unit Admin: 02/02/18 05:42 Dose: 3 unit Admin: 02/02/18 00:19 Dose: Not Given Losartan Potassium (Cozaar) 100 mg PO HS BRANDI Last Admin: 02/03/18 20:58 Dose: 100 mg Admin: 02/02/18 21:29 Dose: 100 mg Metoclopramide HCl (Reglan) 10 mg IV Q6 BRANDI Last Admin: 02/04/18 11:09 Dose: 10 mg Admin: 02/04/18 05:56 Dose: 10 mg Admin: 02/04/18 00:15 Dose: 10 mg Admin: 02/03/18 17:41 Dose: 10 mg Admin: 02/03/18 12:11 Dose: 10 mg Admin: 02/03/18 07:04 Dose: 10 mg Admin: 02/02/18 23:52 Dose: 10 mg Admin: 02/02/18 17:30 Dose: 10 mg Admin: 02/02/18 12:37 Dose: 10 mg Admin: 02/02/18 05:27 Dose: 10 mg Admin: 02/01/18 23:11 Dose: 10 mg Morphine Sulfate (Morphine) 4 mg IV Q1HP PRN PRN Reason: PAIN LEVEL > 6 Last Admin: 02/03/18 19:28 Dose: 4 mg Admin: 02/03/18 10:54 Dose: 4 mg Admin: 02/02/18 17:31 Dose: 4 mg Admin: 02/02/18 12:45 Dose: 4 mg Admin: 02/02/18 10:55 Dose: 4 mg Admin: 02/02/18 07:21 Dose: 4 mg Admin: 02/02/18 05:27 Dose: 4 mg Admin: 02/02/18 02:35 Dose: 4 mg Admin: 02/02/18 00:26 Dose: 4 mg Admin: 02/01/18 23:05 Dose: 4 mg Admin: 02/01/18 21:22 Dose: 4 mg Admin: 02/01/18 19:38 Dose: 4 mg Ondansetron HCl (Zofran) 4 mg IV Q4-6HP PRN PRN Reason: Nausea And Vomiting Last Admin: 02/03/18 20:58 Dose: 4 mg Trazodone HCl (Desyrel) 100 mg PO HS BRANDI Last Admin: 02/03/18 20:58 Dose: 100 mg Admin: 02/02/18 21:29 Dose: 100 mg Admin: 02/01/18 21:41 Dose: 100 mg Shift Summary 02/04/18 04:16 Shift Summary by Josefina Bran Addendum entered by Josefina Bran R.N. 02/04/18 04:39: ordered Vanco 2 Gm in 2L Dextrose 2.5% to be instilled in abdomen for 8 hours. Fluid will be drained at 0630; patient will perform herself. Administered Cefepime 2Gm via IV at 2217. Original Note: A&Ox4. Tolerating clear liquid diet. Patient required 1L O2 to maintain oxygen saturation above 90%. Administered Ofirmev 1,000mg at 0020 to help reduce patient's fever and abdominal pain/cramping. Patient stated that her abdominal cramping has improved; she is afebrile at this time. She has had frequent loose stools throughout shift; uses bedside commode if unable to make it to bathroom d /t urgency. 22 gauge to left hand is SL. Accu checks Q6H; patient uses her insulin pump to calculate sliding scale coverage. BG was 288 at 2354; covered with 3 units Humalog. Will update at bedside. Initialized on 02/04/18 04:16 - END OF NOTE
== END 2018-02-04 15:27 | disposition home or self-care (01) ==
LOC: ED 13:58 → MEDSUR 18:45 → INTOOBSV 18:45
PROVIDERS: ADMIT Family Medicine Adult Medicine; ATTEND Family Medicine Adult Medicine